=== PATIENT | male | born 1945 | race Caucasian/White ===

== ENCOUNTER → 2020-11-13 | Outpatient (CLI) | payer OTHER | LOC: KOH-I 08:23 | DX: J32.9 Chronic sinusitis, unspecified (principal); J32.0 Chronic maxillary sinusitis | CPT/HCPCS: 70486 ==

== ENCOUNTER 2021-02-12 18:57 | Emergency (ER) | payer OTHER ==
[~2021-02-12 18:57] MED LIST: ARICEPT10 MG PO; BETA CAROTENE PO; BIOTIN PO; BUPROPION XL150 MG PO; LISINOPRIL40 MG PO; LORATADINE10 MG PO; ZOCOR40 MG PO; ZOLOFT50 MG PO
== END 2021-02-13 00:46 | disposition home or self-care (01) ==
LOC: ER1 18:57
DX: R33.9 Retention of urine, unspecified (principal); T41.205A Adverse effect of unspecified general anesthetics, initial encounter
CPT/HCPCS: 51702; 81001; 87077; 87086; 87186; 99283